=== PATIENT | female | born 1950 | race Caucasian/White ===

== ENCOUNTER 2022-06-02 18:20 | Emergency (ER) | payer SELFPAY ==
[~2022-06-02] VITALS: Ht 175.3 cm; Wt 89.8 kg
[2022-06-02 18:34] VITALS: BP 119/70
[2022-06-02] MEDS ORDERED: ELIMC TP (19:41)
--- NOTE | 2022-06-02 20:50 | NUR ---
PT CLEARED FOR D/C BY [facility] LANDRY. PT NOT FOUND OUTSIDE OR IN LOBBY FOR D/C INSTRUCTIONS.
== END 2022-06-02 20:50 | disposition home or self-care (01) ==
LOC: MED 18:20
DX: B86 Scabies (principal); Z79.899 Other long term (current) drug therapy
CPT/HCPCS: 99281